=== PATIENT | female | born 1960 | race African-American/Black ===

== ENCOUNTER 2016-11-12 13:04 | Emergency (ER) | payer MEDICARE, OTHER ==
[~2016-11-12] VITALS: Ht 170.2 cm; Wt 88.5 kg
[~2016-11-12 13:04] MED LIST: ADVAIR 250-501 EACH; ASPIRIN81 MG ORAL; AUGMENTIN 875-1 EAC1 ORAL; CEPHALEXIN500 MG PO; DIFLUCAN100 MG ORAL; DIFLUCAN150 MG PO; FIORICET1 EA ORAL; HYDROCHLOROTH12.5 M2 PO; LOVASTATIN20 MG PO; NORCO 5-325 TA1 EACH ORAL; NORCO 5-325 TA1 EACH PO; OMEPRAZOLE20 M2 PO; PROAIR HFA8.5 GM; TAMIFLU75 MG ORAL; ZOFRAN ODT4 MG ORAL; ZOFRAN4 MG ORAL
[2016-11-12 13:24] VITALS: BP 136/84
[2016-11-12] MEDS ORDERED: Ketorolac 30mg Inj IM ONE (13:30)
--- NOTE | 2016-11-12 13:44 | Emergency Room Report ---
History of Present Illness General Chief Complaint: General Complaint Source: Patient, Medical Record Present Illness HPI The patient is a 56-year-old female presenting for hypertension and headache. The patient states that she regularly checks blood pressure at home which has been within normal range but she checked yesterday and it was elevated. She states blood pressure was in the 140s/90s. She states that she has had a very salty diet within the past 2 days and thinks this may causing the increase in blood pressure. She states that she has been taking her blood pressure medication as prescribed. Headache is described as a 5/10 diffuse dull ache. No known provoking relieving factors. She has taken [place] for pain which does help. She denies any other symptoms including N, V, F, chills, edema, CP, SOB, dizziness, blurred vision Allergies: Uncoded Allergies: ERYTHROMYCIN (Allergy, 06/02/12) MOTRIN (Allergy, 06/02/12) SULFA (Allergy, 06/02/12) Patient History Past Medical History: see triage record Pertinent Family History: none Last Menstrual Period: 2006 Now: No : 3 Para: 2 Reviewed Nursing Documentation: PMH: Agreed, PSxH: Agreed Nursing Documentation-PMH Past Medical History: No History, Except For Hx Cardiac Problems: Yes - high cholesterol Hx Hypertension: Yes Hx COPD: Yes Hx Gastrointestinal Problems: Yes - acid reflux Review of Systems All Other Systems: negative except mentioned in HPI Physical Exam Vital Signs Date Time Temp Pulse Resp B/P Pulse Ox O2 Delivery O2 Flow Rate FiO2 11/12/16 13:13 97.9 76 18 132/87 100 Room Air Sp02 EP Interpretation: reviewed, normal General Appearance: no apparent distress, alert, GCS 15, non-toxic Head: normocephalic, atraumatic Eyes: bilateral eye PERRL, bilateral eye normal inspection ENT: hearing grossly normal, normal pharynx, no angioedema, normal voice Neck: full range of motion, supple/symm/no masses Respiratory: chest non-tender, lungs clear, normal breath sounds, speaking full sentences Cardiovascular #1: regular rate, rhythm, no edema Cardiovascular #2: 2+ carotid (R), 2+ carotid (L), 2+ radial (R), 2+ radial (L) , 2+ dorsalis pedis (R), 2+ dorsalis pedis (L) Gastrointestinal: normal bowel sounds, non tender, soft, non-distended, no guarding, no rebound Musculoskeletal: back normal, gait/station normal, normal range of motion, non- tender Neurologic: alert, oriented x3, responsive, motor strength/tone normal, sensory intact, normal gait, speech normal Psychiatric: judgement/insight normal, memory normal, mood/affect normal, no suicidal/homicidal ideation Skin: normal color, no rash, warm/dry, well hydrated Lymphatic: no adenopathy Medical Decision Making PA Attestation Dr. Llanos is my supervising physician. Patient management was discussed with my supervising physician Diagnostic Impression: Primary Impression: Hypertension Qualified Codes: I10 - Essential (primary) hypertension Additional Impression: Headache Qualified Codes: R51 - Headache ER Course The patient is a 56-year-old female presenting for hypertension and headache. DDx considered but not limited to: essential HTN, HTN urgency/emergency, CHF, ACS, migraine, tension headache, among others PE: vitals WNL. Normotensive PERRL. EOMI. Normal mentation. RRR. No MRG Lungs CTA bilat Abdomen: Normal appearance. Non distended. No ecchymosis. No edema Pt is given Toradol and HCTZ and is feeling better. Multiple repeat BP are WNL. Pt will be DC'ed home. The patient is informed that she needs to keep a blood pressure diary and will followup with PMD to discuss increase of medications. Dietary instructions given. ER precautions given Last Vital Signs Date Time Temp Pulse Resp B/P Pulse Ox O2 Delivery O2 Flow Rate FiO2 11/12/16 13:24 98.1 72 17 136/84 100 Room Air Status: improved Disposition: HOME, SELF-CARE Condition: Improved Referrals: NON PHYSICIAN (PCP) EZEKIEL BURGER Nov 12, 2016 13:44
[2016-11-12 14:22] VITALS: BP 136/84
== END 2016-11-12 14:23 | disposition home or self-care (01) ==
LOC: EMR 13:38
DX: I10 Essential (primary) hypertension (principal); R51 Headache; J44.9 Chronic obstructive pulmonary disease, unspecified; Z88.2 Allergy status to sulfonamides; Z88.6 Allergy status to analgesic agent; Z88.1 Allergy status to other antibiotic agents
CPT/HCPCS: 96372; 99283; J1885

== ENCOUNTER → 2017-05-24 | Emergency (ER) | payer MEDICARE, OTHER ==
[~2017-05-24] VITALS: Ht 170.2 cm; Wt 85.7 kg
--- NOTE | 2017-05-24 14:56 | Emergency Room Report ---
History of Present Illness General Chief Complaint: Chest Pain Source: Patient Present Illness HPI 57-year-old female walks in with chest pain. Onset occurred 4 hours ago, while she was "running around around doing things." States pain was substernal, radiating to the left shoulder, was sharp in quality , 5/10. No associated shortness of breath, fever, cough, or chills States she had a heart attack back in 2013, did not have cath stents placed. States she was told this based on "blood tests". Takes daily aspirin, took this morning. Has high blood pressure and high cholesterol, took medications for both this morning Currently asymptomatic, episode lasted only 20 minutes. Allergies: Uncoded Allergies: ERYTHROMYCIN (Allergy, 06/02/12) MOTRIN (Allergy, 06/02/12) SULFA (Allergy, 06/02/12) Patient History Past Medical History: HTN, other - HLD Past Surgical History: none Pertinent Family History: none Social History: Reports: smoking, drug use Now: No Immunizations: UTD Reviewed Nursing Documentation: PMH: Agreed, PSxH: Agreed Nursing Documentation-PMH Past Medical History: No History, Except For Hx Cardiac Problems: Yes - high cholesterol Hx Hypertension: Yes Hx COPD: Yes Hx Gastrointestinal Problems: Yes - acid reflux Review of Systems All Other Systems: negative except mentioned in HPI Physical Exam Vital Signs Date Time Temp Pulse Resp B/P (MAP) Pulse Ox O2 Delivery O2 Flow Rate FiO2 05/24/17 14:46 98.2 80 17 122/87 99 Room Air Sp02 EP Interpretation: reviewed, normal General Appearance: normal inspection, well appearing, no apparent distress, alert, GCS 15, non-toxic Head: atraumatic ENT: normal ENT inspection, hearing grossly normal, normal voice Neck: normal inspection, full range of motion, supple, no bony tend Respiratory: normal inspection, lungs clear, normal breath sounds, no respiratory distress, no retraction, no wheezing, chest symmetrical, palpation of chest normal Cardiovascular #1: regular rate, rhythm, no edema Gastrointestinal: normal inspection, normal bowel sounds, non tender, soft, no guarding, no hernia Genitourinary: no CVA tenderness Musculoskeletal: normal inspection, back normal, normal range of motion, David' s Sign negative Neurologic: normal inspection, alert, oriented x3, responsive, 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 worker 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 nml as tested, speech normal Psychiatric: normal inspection, judgement/insight normal, mood/affect normal Skin: normal inspection, normal color, no rash Medical Decision Making Diagnostic Impression: Primary Impression: Chest pain Qualified Codes: R07.9 - Chest pain, unspecified ER Course 57-year-old female with chest pain, now asymptomatic Signs stable, afebrile ECG shows no signs of ischemia or arrhythmia She remains asymptomatic in the ER Troponin 0 Utox + for opiates, MJ Not required repeat ECG or other intervention Chest x-ray does not show cardiomegaly, or pneumothorax or pneumonia She reassured Likely angina Patient states that her doctor wants her to get stress test, which I advised the next step ER course: Patient has remained stable during ED stay. Patient is to be discharged to home. Patient is instructed to follow up with their primary care doctor within 5 days. 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 Strict return precautions discussed with patient such as fever, chills, worsening/severe pain, nausea, vomiting, which may indicate severe illness. Patient verbalizes understanding and agrees with plan. Please note that this Emergency Department Report was dictated using [employer]amed[employer] distribution technology software, occasionally this can lead to erroneous entry secondary to interpretation by the dictation equipment EKG Diagnostic Results Rate: normal Rhythm: NSR ST Segments: no acute changes ASA given to the pt in ED: No Rhythm Strip Diag. Results EP Interpretation: yes Rate: 79 Rhythm: NSR, no PVC's, no ectopy Chest X-Ray Diagnostic Results Chest X-Ray Diagnostic Results : Chest X-Ray Ordered: Yes # of Views/Limited/Complete: 1 View Indication: Chest Pain EP Interpretation: Yes Interpretation: no consolidation, no effusion, no pneumothorax Impression: No acute disease Electronically Signed by: Dr Su Daniels MD Last Vital Signs Date Time Temp Pulse Resp B/P (MAP) Pulse Ox O2 Delivery O2 Flow Rate FiO2 05/24/17 14:46 98.2 80 17 122/87 99 Room Air Status: improved Disposition: HOME, SELF-CARE SU DANIELS M.D. May 24, 2017 14:56
[2017-05-24 15:06] VITALS: BP 131/83
[2017-05-24 15:30] LABS: BASOPHILS % (AUTO) 1.7 % (0.0-2.0); EOSINOPHILS % (AUTO) 2.9 % (0.0-3.0); LYMPHOCYTES % (AUTO) 41.6 % (20.0-45.0); MEAN CORPUSCULAR HEMOGLOBIN 31.6 PG (27.0-31.0); MEAN CORPUSCULAR HGB CONC 32.9 G/DL (32.0-36.0); MEAN CORPUSCULAR VOLUME 96 FL (80-99); MEAN PLATELET VOLUME 8.7 FL (6.5-10.1); MONOCYTES % (AUTO) 9.7 % (1.0-10.0); NEUTROPHILS % (AUTO) 44.1 % (45.0-75.0); PLATELET COUNT 213 K/UL (150-450); RED BLOOD COUNT 4.58 M/UL (4.20-5.40); RED CELL DISTRIBUTION WIDTH 11.4 % (11.6-14.8); WHITE BLOOD COUNT 4.2 K/UL (4.8-10.8)
[2017-05-24 15:48] LABS: ANION GAP 8 mmol/L (5-15); CALCIUM 9.4 MG/DL (8.5-10.1); CARBON DIOXIDE 31 MMOL/L (21-32); CHLORIDE 103 MMOL/L (98-107); GLOMERULAR FILTRATION RATE > 60 mL/min (>60); POTASSIUM 3.8 MMOL/L (3.5-5.1); SODIUM 142 MMOL/L (136-145)
[2017-05-24 16:01] LABS: ALANINE AMINOTRANSFERASE 21 U/L (12-78); ALBUMIN/GLOBULIN RATIO 0.9 (1.0-2.7); ASPARTATE AMINO TRANSFERASE 19 U/L (15-37); CKMB 1.8 NG/ML (0.0-3.6); TOTAL PROTEIN 7.6 G/DL (6.4-8.2)
--- NOTE | 2017-05-24 17:16 | Diagnostic Imaging Report ---
Indication: Chest pain Technique: One view of the chest Comparison: 09/14/2011 Findings: Lungs and pleural spaces are clear. Heart size is normal. No significant or change Impression: No acute process
--- NOTE | 2017-05-27 11:00 | Cardiology Report ---
APPROVED REPORT EKG Measurement Heart [id number] Normal sinus rhythm Normal ECG
== END | disposition home or self-care (01) ==
LOC: EMR 15:05
DX: R07.89 Other chest pain (principal); I10 Essential (primary) hypertension; J44.9 Chronic obstructive pulmonary disease, unspecified; Z88.2 Allergy status to sulfonamides; Z88.6 Allergy status to analgesic agent; E78.5 Hyperlipidemia, unspecified; K21.9 Gastro-esophageal reflux disease without esophagitis
CPT/HCPCS: 36415; 71010; 80053; 80307; 82550; 82553; 84484; 85025; 93005; 99284

== ENCOUNTER 2017-07-28 17:12 | Emergency (ER) | payer MEDICARE, OTHER ==
[~2017-07-28] VITALS: Ht 170.2 cm; Wt 83.9 kg
[2017-07-28] MEDS ORDERED: Metoclopramide 10mg/10ml Liq ORAL ONE (18:00)
[2017-07-28] MEDS ORDERED: Excedrin Migraine tab ORAL ONE (18:15)
[2017-07-28 18:46] LABS: APPEARANCE,URINE CLEAR; BILIRUBIN, URINE NEGATIVE (NEGATIVE); COLOR,URINE PALE YELLOW; GLUCOSE, URINE (UA) NEGATIVE (NEGATIVE); KETONES,URINE NEGATIVE (NEGATIVE); LEUKOCYTE ESTERASE ,URINE NEGATIVE (NEGATIVE); NITRITE,URINE NEGATIVE (NEGATIVE); PH,URINE 7 (4.5-8.0); PROTEIN,URINE NEGATIVE (NEGATIVE); UROBILINOGEN,URINE NORMAL MG/DL (0.0-1.0)
--- NOTE | 2017-07-28 19:05 | Emergency Room Report ---
History of Present Illness General Chief Complaint: Headache Source: Patient, Medical Record Present Illness HPI 57-year-old female presents to the emergency department complaining of 10 out of 10 in severity progressive onset right sided throbbing headache since last night. Patient reports that she took Tylenol prior to bed however when she awoke she continued to have headache symptoms. Patient has history of headaches or which she was previously prescribed Fioricet for her one point however she is not currently takes a medication. Patient states she's never actually been evaluated by neurologist and diagnosed with migraines. Patient denies photophobia, or a, hyperacusis, nausea, vomiting, neck pain or stiffness. Patient denies weakness or paresthesias. Patient reports that she has history of high blood pressure for which she takes hydrochlorothiazide 12.5 mg once in the morning for. Patient states that her blood pressure has been elevated for the past 2 days she reports that previously she was prescribed 25 mg once daily however it has to be dizzy frequently and she was returned back to original 12.5 mg doses. Denies head trauma or fall. She reports some urinary frequency denies dysuria or hematuria. Denies CP, Palpitations, LOC, AMS, dizziness, Changes in Vision, Sensation, paresthesias, or a sudden severe headache. Allergies: Uncoded Allergies: ERYTHROMYCIN (Allergy, 06/02/12) MOTRIN (Allergy, 06/02/12) SULFA (Allergy, 06/02/12) Patient History Past Medical History: see triage record, migraines Past Surgical History: none Pertinent Family History: none Now: No Immunizations: UTD Reviewed Nursing Documentation: PMH: Agreed, PSxH: Agreed Nursing Documentation-PMH Past Medical History: No History, Except For Hx Cardiac Problems: Yes - high cholesterol Hx Hypertension: Yes Hx COPD: Yes Hx Gastrointestinal Problems: Yes - acid reflux Review of Systems All Other Systems: negative except mentioned in HPI Physical Exam Vital Signs Date Time Temp Pulse Resp B/P (MAP) Pulse Ox O2 Delivery O2 Flow Rate FiO2 07/28/17 17:21 97.8 87 18 166/102 98 Room Air 97.9 Sp02 EP Interpretation: reviewed, normal General Appearance: no apparent distress, alert, GCS 15, non-toxic Head: normocephalic, atraumatic Eyes: bilateral eye normal inspection, bilateral eye PERRL ENT: hearing grossly normal, normal voice Neck: full range of motion, no meningismus, no bony tend Respiratory: lungs clear, normal breath sounds, speaking full sentences Cardiovascular #1: regular rate, rhythm Gastrointestinal: normal bowel sounds, non tender, soft Genitourinary: no CVA tenderness Musculoskeletal: back normal, gait/station normal, normal range of motion, non- tender Neurologic: alert, oriented x3, responsive, motor strength/tone normal, sensory intact, normal gait, speech normal, no pronator, grossly normal Psychiatric: judgement/insight normal Skin: normal color, no rash, warm/dry, well hydrated Medical Decision Making PA Attestation Dr. Ferrer is my supervising Physician whom patient management has been discussed with. Diagnostic Impression: Primary Impression: Headache Qualified Codes: R51 - Headache Additional Impression: Elevated blood pressure reading ER Course 57-year-old female presents to the emergency department complaining of 10 out of 10 in severity progressive onset right sided throbbing headache since last night. Patient reports that she took Tylenol prior to bed however when she awoke she continued to have headache symptoms. Patient has history of headaches or which she was previously prescribed Fioricet for her one point however she is not currently takes a medication. Patient states she's never actually been evaluated by neurologist and diagnosed with migraines. Patient denies photophobia, or a, hyperacusis, nausea, vomiting, neck pain or stiffness. Patient denies weakness or paresthesias. Patient reports that she has history of high blood pressure for which she takes hydrochlorothiazide 12.5 mg once in the morning for. Patient states that her blood pressure has been elevated for the past 2 days she reports that previously she was prescribed 25 mg once daily however it has to be dizzy frequently and she was returned back to original 12.5 mg doses. Denies head trauma or fall. She reports some urinary frequency denies dysuria or hematuria. Denies CP, Palpitations, LOC, AMS, dizziness, Changes in Vision, Sensation, paresthesias, or a sudden severe headache. Ddx considered but are not limited to migraine, SAH, Psedudo motor Cerebri, Mass lesion, Cluster CALDERA, Tension CALDERA, Post lumbar puncture CALDERA. Vital signs: are WNL, pt. is afebrile H&PE are most consistent with headache and hx of HTN. no focal neuro deficits. ORDERS: ED INTERVENTIONS: --Reglan 10mg PO -Excedrin Migraine PO -12.5mg HCTZ PO On reevaluation patient states that her symptoms have completely resolved and she feels much better. Discussed with the patient the results of her urine testing. Urge patient to follow up with primary care doctor for neurologist referral. DISCHARGE: At this time pt. is stable for d/c to home. Will provide printed patient care instructions, and any necessary prescriptions. Care plan and follow up instructions have been discussed with the patient prior to discharge. Labs Test 07/28/17 18:10 Urine Color Pale yellow Urine Appearance Clear Urine pH 7 (4.5-8.0) Urine Specific [place] 1.005 (1.005-1.035) Urine Protein Negative (NEGATIVE) Urine Glucose (UA) Negative (NEGATIVE) Urine Ketones Negative (NEGATIVE) Urine Occult Blood 1+ (NEGATIVE) Urine Nitrite Negative (NEGATIVE) Urine Bilirubin Negative (NEGATIVE) Urine Urobilinogen Normal MG/DL (0.0-1.0) Urine Leukocyte Esterase Negative (NEGATIVE) Urine RBC 2-4 /HPF (0 - 2) Urine WBC 0-2 /HPF (0 - 2) Urine Squamous Epithelial Cells Few /LPF (NONE/OCC) Urine Bacteria None /HPF (NONE) Last Vital Signs Date Time Temp Pulse Resp B/P (MAP) Pulse Ox O2 Delivery O2 Flow Rate FiO2 07/28/17 18:15 97.8 07/28/17 17:21 87 18 166/102 98 Room Air Disposition: HOME, SELF-CARE Condition: Stable Scripts Hydrochlorothiazide* (HYDROCHLOROTHIAZIDE*) 12.5 Mg Capsule 12.5 MG ORAL QPM for For High Blood Pressure, #15 CAP Prov: Audrey Wong.AShayy 07/28/17 Aspirin/Acetaminophen/Caffeine (EXCEDRIN MIGRAINE GELTAB) 1 Each Tablet 1 EACH PO Q6HR, #30 TAB Prov: Audrey Wong.A. 07/28/17 Metoclopramide Hcl* (REGLAN*) 10 Mg Tablet 10 MG ORAL THREE TIMES A DAY, #15 TAB Prov: Audrey Wong P.A. 07/28/17 Referrals: NON PHYSICIAN (PCP) Patient Instructions: Migraine Headache Additional Instructions: Take medications as directed. Check BP before taking evening dosage of BP Medication, only take if BP is elevated in the evening above 145/95 -- Follow up with a Primary Care Provider in 3-5 days, even if your symptoms have resolved. to re-assess need for Medication Management. --Please review list of primary care clinics, if you do not already have a primary care provider Return sooner to ED if new symptoms occur, or current symptoms become worse. - Please note that this Emergency Department Report was dictated using [employer] software tester technology software, occasionally this can lead to erroneous entry secondary to interpretation by the dictation equipment. Audrey Wong Jul 28, 2017 19:05
[2017-07-28] MEDS ORDERED: EXCEDRIN MIGRA1 EACH PO (19:06)
[2017-07-28] MEDS ORDERED: REGLAN10 MG ORAL (19:06)
[2017-07-28] MEDS ORDERED: HYDROCHLOROTH12.5 M2 ORAL (19:06)
[2017-07-28 19:13] VITALS: BP 154/92
[2017-07-28 19:14] VITALS: BP 154/92
== END 2017-07-28 19:15 | disposition home or self-care (01) ==
LOC: EMR 17:53
DX: R51 Headache (principal); I10 Essential (primary) hypertension; J44.9 Chronic obstructive pulmonary disease, unspecified; E78.00 Pure hypercholesterolemia, unspecified; K21.9 Gastro-esophageal reflux disease without esophagitis; Z88.2 Allergy status to sulfonamides; Z88.6 Allergy status to analgesic agent
CPT/HCPCS: 81003; 99284

== ENCOUNTER 2017-08-15 03:11 | Emergency (ER) | payer MEDICARE, OTHER ==
[~2017-08-15] VITALS: Ht 170.2 cm; Wt 83.0 kg
[~2017-08-15 03:11] MED LIST changes: +EXCEDRIN MIGRA1 EACH PO; +HYDROCHLOROTH12.5 M2 ORAL; +REGLAN10 MG ORAL
[2017-08-15 03:25] VITALS: BP 155/92
[2017-08-15 03:30] VITALS: BP 155/92
--- NOTE | 2017-08-15 04:19 | Emergency Room Report ---
History of Present Illness General Chief Complaint: General Complaint Source: Patient Present Illness Allergies: Uncoded Allergies: ERYTHROMYCIN (Allergy, 06/02/12) MOTRIN (Allergy, 06/02/12) SULFA (Allergy, 06/02/12) Nursing Documentation-[facility] Past Medical History: No History, Except For Hx Cardiac Problems: Yes - high cholesterol Hx Hypertension: Yes - high cholesterol Hx COPD: Yes Hx Gastrointestinal Problems: Yes - acid reflux Physical Exam Vital Signs Date Time Temp Pulse Resp B/P (MAP) Pulse Ox O2 Delivery O2 Flow Rate FiO2 08/15/17 03:17 98.9 103 20 155/92 100 Room Air 99.0 Medical Decision Making Last Vital Signs Date Time Temp Pulse Resp B/P (MAP) Pulse Ox O2 Delivery O2 Flow Rate FiO2 08/15/17 03:17 98.9 103 20 155/92 100 Room Air 99.0 Disposition: ELOPED Referrals: NON PHYSICIAN (PCP) SU DANIELS M.D. Aug 15, 2017 04:19
[2017-08-15] MEDS ORDERED: CEPHALEXIN500 MG ORAL (12:39)
[2017-08-15] MEDS ORDERED: DIFLUCAN150 MG PO (12:49)
== END 2017-08-15 03:50 | disposition left against medical advice (07) ==
LOC: EMR 03:42
DX: M79.671 Pain in right foot (principal); Z53.21 Procedure and treatment not carried out due to patient leaving prior to being seen by health care provider
CPT/HCPCS: 99284

== ENCOUNTER 2017-08-15 12:04 | Emergency (ER) | payer MEDICARE, OTHER ==
[~2017-08-15] VITALS: Ht 170.2 cm; Wt 83.0 kg
[2017-08-15] MEDS ORDERED: CEPHALEXIN500 MG ORAL (12:39)
[2017-08-15 12:45] VITALS: BP 129/84
[2017-08-15] MEDS ORDERED: DIFLUCAN150 MG PO (12:49)
--- NOTE | 2017-08-15 19:44 | Emergency Room Report ---
History of Present Illness General Chief Complaint: Pain Source: Patient Present Illness HPI The patient is a 57-year-old female presenting for right foot pain. She states that this began 2 weeks prior for no known reason. She denies any injury. She noticed a bump on the bottom of her foot. She states that this has been increasing in size and pain. Pain is now a 9/10 dull ache and worse with walking and touch. Pain does not radiate. She denies any other symptoms including numbness, tingling, calf pain or swelling, fever, chills, discharge Allergies: Coded Allergies: IBUPROFEN (Verified Allergy, Unknown, ACID REFLUX, 08/15/17) SULFA (SULFONAMIDE ANTIBIOTICS) (Verified Allergy, Unknown, HEADACHE, NAUSEA, SCRATCHY THROAT, 08/15/17) Uncoded Allergies: MOTRIN (Allergy, Unknown, 08/15/17) SULFA (Allergy, Unknown, 08/15/17) Patient History Past Medical History: see triage record Pertinent Family History: none Last Menstrual Period: Post Reviewed Nursing Documentation: PMH: Agreed, PSxH: Agreed Nursing Documentation-PMH Hx Cardiac Problems: Yes - [place] 2007 Hx Hypertension: Yes - High cholesterol Hx COPD: Yes Hx Gastrointestinal Problems: Yes - Acid Reflux Hx Cerebrovascular Accident: Yes - 2007 Review of Systems All Other Systems: negative except mentioned in HPI Physical Exam Vital Signs Date Time Temp Pulse Resp B/P (MAP) Pulse Ox O2 Delivery O2 Flow Rate FiO2 08/15/17 12:15 98.5 76 18 129/84 96 Room Air 98.4 Sp02 EP Interpretation: reviewed, normal General Appearance: no apparent distress, alert, GCS 15, non-toxic Head: normocephalic, atraumatic Eyes: bilateral eye normal inspection, bilateral eye PERRL Musculoskeletal: back normal, gait/station normal, normal range of motion, tender - TTP plantar surface of R foot pad Neurologic: alert, oriented x3, responsive, motor strength/tone normal, sensory intact, speech normal Psychiatric: judgement/insight normal, memory normal, mood/affect normal, no suicidal/homicidal ideation Skin: other - 1cm fluctuant lesion of the R foot pad. Erythema. TTP Lymphatic: no adenopathy Medical Decision Making PA Attestation Dr. Ferrer is my supervising physician. Patient management was discussed with my supervising physician Diagnostic Impression: Primary Impression: Abscess ER Course The patient is a 57-year-old female presenting for right foot pain. Differential diagnoses considered but not limited to: abscess, cellulitis, insect bite, foreign body, among others PE: NAD R foot plantar surface: Skin intact. 1cm fluctuant lesion of the R foot pad. Erythema. TTP The patient is discharged home with prescription for Keflex for suspected infection. She is requesting treatment for vaginal yeast infection after the antibiotic course. She'll be discharged home and is given precautions to return for incision and drainage. ER precautions given Last Vital Signs Date Time Temp Pulse Resp B/P (MAP) Pulse Ox O2 Delivery O2 Flow Rate FiO2 08/15/17 12:45 209.1 76 18 129/84 96 Room Air Status: improved Disposition: HOME, SELF-CARE Condition: Improved Scripts Fluconazole (DIFLUCAN) 150 Mg Tablet 150 MG PO DAILY, #1 TAB Prov: EZEKIEL BURGER P.A. 08/15/17 Cephalexin* (KEFLEX*) 500 Mg Capsule 500 MG ORAL EVERY 12 HOURS, #14 CAP 0 Refills Prov: EZEKIEL BURGER P.A. 08/15/17 Patient Instructions: Abscess, [id number] Additional Instructions: I discussed my findings with the patient. All questions and concerns have been answered. Treatment and medication compliance have been addressed. I advised the patient that they need to follow up with PMD in 3-5 days. Return to ED if symptoms worsen, new symptoms arise, or if needed for any reason. Patient verbalized understanding of discharge instructions. Please return for incission and drainage if the area gets softer, larger, and/ or more painful. EZEKIEL BURGER Aug 15, 2017 19:44
== END 2017-08-15 12:49 | disposition home or self-care (01) ==
LOC: EMR 12:32
DX: L02.611 Cutaneous abscess of right foot (principal); I10 Essential (primary) hypertension; I25.2 Old myocardial infarction; J44.9 Chronic obstructive pulmonary disease, unspecified; K21.9 Gastro-esophageal reflux disease without esophagitis; Z88.6 Allergy status to analgesic agent; Z88.2 Allergy status to sulfonamides
CPT/HCPCS: 99284

== ENCOUNTER 2017-09-21 03:45 | Emergency (ER) | payer MEDICARE, OTHER ==
[~2017-09-21] VITALS: Ht 170.2 cm; Wt 82.6 kg
[~2017-09-21 03:45] MED LIST changes: +CEPHALEXIN500 MG ORAL
[2017-09-21 04:00] VITALS: BP 137/91
--- NOTE | 2017-09-21 04:09 | Emergency Room Report ---
History of Present Illness General Chief Complaint: Dyspnea/Respdistress Source: Patient, Medical Record Present Illness HPI This is a 57-year-old female with multiple medical problem including COPD. She presents with chief complaint of cough and shortness breath for the last 3 days. Worse tonight. She took her breathing treatment and help. No nausea no vomiting no fever chills. Cough is nonproductive in nature. Worse with exertion. Better with breathing treatment. Second complaint is headache. Has been ongoing for the last couple weeks. Throbbing in nature. She said she can get rid of it. No focal deficit. Hasn't had any CT scan for this headache workup. Allergies: Coded Allergies: IBUPROFEN (Verified Allergy, Unknown, ACID REFLUX, 08/15/17) SULFA (SULFONAMIDE ANTIBIOTICS) (Verified Allergy, Unknown, HEADACHE, NAUSEA, SCRATCHY THROAT, 08/15/17) Uncoded Allergies: MOTRIN (Allergy, Unknown, 08/15/17) SULFA (Allergy, Unknown, 08/15/17) Patient History Past Medical History: see triage record, old chart reviewed, HTN, CAD, COPD, CVA/TIA Past Surgical History: other Pertinent Family History: none Social History: Denies: smoking Last Menstrual Period: 2006 Now: No Immunizations: other Reviewed Nursing Documentation: PMH: Agreed; PSxH: Agreed Nursing Documentation-PMH Hx Cardiac Problems: Yes - [place] 2008 Hx Hypertension: Yes - High cholesterol Hx COPD: Yes Hx Gastrointestinal Problems: Yes - Acid Reflux Hx Cerebrovascular Accident: Yes - 2008 Review of Systems Eye: Denies: eye pain, blurred vision ENT: Denies: ear pain, nose congestion, throat swelling Respiratory: Reports: cough, shortness of breath Cardiovascular: Denies: chest pain, palpitations Gastrointestinal: Denies: abdominal pain, diarrhea, nausea, vomiting Musculoskeletal: Denies: back pain, joint pain Skin: Denies: rash Neurological: Denies: headache, numbness Endocrine: Denies: increased thirst, increased urine Hematologic/Lymphatic: Denies: easy bruising All Other Systems: negative except mentioned in HPI Physical Exam Vital Signs Date Time Temp Pulse Resp B/P (MAP) Pulse Ox O2 Delivery O2 Flow Rate FiO2 09/21/17 03:49 98.1 78 15 137/91 97 Room Air 98.1 vitals normal Sp02 EP Interpretation: reviewed, normal General Appearance: well appearing, no apparent distress, alert Head: normocephalic, atraumatic Eyes: bilateral eye PERRL, bilateral eye EOMI ENT: hearing grossly normal, normal pharynx Neck: full range of motion, supple, no meningismus Respiratory: chest non-tender, wheezing - slight external wheezing Cardiovascular #1: regular rate, rhythm, no murmur Gastrointestinal: normal bowel sounds, non tender, no mass, no organomegaly, no bruit, non-distended Musculoskeletal: back normal, gait/station normal, normal range of motion Psychiatric: mood/affect normal Skin: warm/dry Medical Decision Making Diagnostic Impression: Primary Impression: COPD exacerbation Additional Impression: Headache Qualified Codes: G44.209 - Tension-type headache, unspecified, not intractable ER Course She presents with COPD exacerbation. She refuses steroid here saying that she had them at home already. She picked up her prescription this afternoon but has not taking them yet. Wheezing resolved. No evidence of pneumonia, ACS, PE , dissection to name a few. Her headache is probably tension in nature. No evidence of bleed or TIA or CVA. No evidence of neoplastic process. CT/MRI/US Diagnostic Results CT/MRI/US Diagnostic Results : Imaging Test Ordered: CT head Impression negative per radiologist Last Vital Signs Date Time Temp Pulse Resp B/P (MAP) Pulse Ox O2 Delivery O2 Flow Rate FiO2 09/21/17 03:49 98.1 78 15 137/91 97 Room Air 98.1 Status: improved Disposition: HOME, SELF-CARE Condition: Stable Scripts Azithromycin* (ZITHROMAX*) 250 Mg Tablet 250 MG ORAL DAILY, #6 TAB 0 Refills Take two tablets by mouth today, then take one tablet by mouth daily for four days Prov: SINDY JONES M.D. 09/21/17 Referrals: NON PHYSICIAN (PCP) Patient Instructions: Chronic Obstructive Pulmonary Disease Exacerbation Additional Instructions: follow-up your doctor in 7 days. Return if symptom worsen. SINDY JONES M.D. Sep 21, 2017 04:09
[2017-09-21] MEDS ORDERED: Acetaminophen 500mg (ES) tab ORAL ONE (04:15)
[2017-09-21] MEDS ORDERED: Albuterol/Ipratropium 3ml neb HHN ONE (04:15)
[2017-09-21] MEDS ORDERED: AZITHROMYCIN250 MG ORAL (05:02)
[2017-09-21 05:12] VITALS: BP 142/85
--- NOTE | 2017-09-21 08:47 | Diagnostic Imaging Report ---
Indication: Headache for one Technique: Continuous helical CT scanning of the head was performed without intravenous contrast material. Axial and coronal 5 mm sections were generated. Radiation dose was minimized using automated exposure control Dose: Total Dose Length Product - DLP 1288.[address] Dose Index - CTDIvol(s) 70.38 mGy. Comparison: 03/20/2014 Findings: The ventricular system is normal in size and configuration. There is no shift of midline structures. No abnormal extra-axial fluid collections are noted. There is no evidence of intracerebral bleeding. No other abnormal high or low density areas are noted within the brain. Intact calvarium. Visualized orbits and sinuses are unremarkable. No significant interim change Impression: Normal CT scan of the head without contrast material. This agrees with the preliminary interpretation provided overnight by [facility] service. The CT scanner at [facility] is accredited by the [employer] and the scans are performed using protocols designed to limit radiation exposure to as low as reasonably achievable to attain images of sufficient resolution adequate for diagnostic evaluation.
== END 2017-09-21 05:12 | disposition home or self-care (01) ==
LOC: EMR 03:55
DX: J44.1 Chronic obstructive pulmonary disease with (acute) exacerbation (principal); G44.209 Tension-type headache, unspecified, not intractable; Z88.6 Allergy status to analgesic agent; Z88.2 Allergy status to sulfonamides; I11.9 Hypertensive heart disease without heart failure; Z86.73 Personal history of transient ischemic attack (TIA), and cerebral infarction without residual deficits; I25.2 Old myocardial infarction; E78.00 Pure hypercholesterolemia, unspecified; K21.9 Gastro-esophageal reflux disease without esophagitis
CPT/HCPCS: 70450; 94640; 94664; 99284; J7620

== ENCOUNTER → 2017-10-04 | Emergency (ER) | payer MEDICARE, OTHER ==
[~2017-10-04] VITALS: Ht 170.2 cm; Wt 81.6 kg
[~2017-10-04] MED LIST changes: +AZITHROMYCIN250 MG ORAL; +NORCO 10-325 T1 EACH ORAL; +PROMETH-CODEIN 65 ML PO; +VENTOLIN HFA18 GM INH
[2017-10-04 22:04] VITALS: BP 126/79
[2017-10-04 23:04] VITALS: BP 132/74
--- NOTE | 2017-10-04 23:14 | Emergency Room Report ---
History of Present Illness General Chief Complaint: Chest Pain Source: Patient Present Illness HPI This is a 57-year-old female with a history of COPD and high blood pressure. She says she's been coughing and congested for about 3 weeks now. Initially in her nose but now down to her chest. Worse with inspiration. Worse with laying flat. There are with breathing treatment and steroid. She had several courses of antibiotics already. She is currently finishing up a course of azithromycin. She also is on prednisone 20 mg. No chest pain. No diaphoresis. No exertional component. Allergies: Coded Allergies: IBUPROFEN (Verified Allergy, Unknown, ACID REFLUX, 08/15/17) SULFA (SULFONAMIDE ANTIBIOTICS) (Verified Allergy, Unknown, HEADACHE, NAUSEA, SCRATCHY THROAT, 08/15/17) Patient History Past Medical History: see triage record, old chart reviewed, HTN, COPD Past Surgical History: other Pertinent Family History: none Social History: Denies: smoking Now: No Immunizations: other Reviewed Nursing Documentation: PMH: Agreed; PSxH: Agreed Nursing Documentation-PMH Past Medical History: No History, Except For Hx Cardiac Problems: Yes - [place] 2008 Hx Hypertension: Yes - High cholesterol Hx COPD: Yes Hx Gastrointestinal Problems: Yes - GERD Hx Cerebrovascular Accident: Yes - 2008 Review of Systems Eye: Denies: eye pain, blurred vision ENT: Denies: ear pain, nose congestion, throat swelling Respiratory: Reports: cough, shortness of breath Cardiovascular: Denies: chest pain, palpitations Gastrointestinal: Denies: abdominal pain, diarrhea, nausea, vomiting Musculoskeletal: Denies: back pain, joint pain Skin: Denies: rash Neurological: Denies: headache, numbness Endocrine: Denies: increased thirst, increased urine Hematologic/Lymphatic: Denies: easy bruising All Other Systems: negative except mentioned in HPI Physical Exam Vital Signs Date Time Temp Pulse Resp B/P (MAP) Pulse Ox O2 Delivery O2 Flow Rate FiO2 10/04/17 22:04 98.6 91 16 126/79 97 Room Air 98.6 vitals normal Sp02 EP Interpretation: reviewed, normal General Appearance: well appearing, no apparent distress, alert Head: normocephalic, atraumatic Eyes: bilateral eye PERRL, bilateral eye EOMI ENT: hearing grossly normal, normal pharynx Neck: full range of motion, supple, no meningismus Respiratory: chest non-tender, lungs clear, normal breath sounds, other - coughing with inspiration Cardiovascular #1: regular rate, rhythm, no murmur Gastrointestinal: normal bowel sounds, non tender, no mass, no organomegaly, no bruit, non-distended Musculoskeletal: back normal, gait/station normal, normal range of motion Psychiatric: mood/affect normal Skin: warm/dry Medical Decision Making Diagnostic Impression: Primary Impression: Acute bronchitis with bronchospasm ER Course Patient presents with acute bronchitis with bronchospasm. Most likely viral in nature since she's been on a few courses of antibiotics already. No evidence of ACS, PE, dissection to name a few. She also has been having abdominal pain and had a recent CT. She does not know results. She does not know evidence included a chest also. I will defer the CT of her chest until she see her doctor. If she hasn't had her CT of the chest and still have coughing I will recommend getting 1. Chest X-Ray Diagnostic Results Chest X-Ray Diagnostic Results : Chest X-Ray Ordered: Yes # of Views/Limited/Complete: 1 View Indication: Shortness of Breath EP Interpretation: Yes Interpretation: no consolidation, no effusion, no pneumothorax, no acute cardiopulmonary disease Impression: No acute disease Electronically Signed by: Rah Issa MD Last Vital Signs Date Time Temp Pulse Resp B/P (MAP) Pulse Ox O2 Delivery O2 Flow Rate FiO2 10/04/17 22:04 98.6 91 16 126/79 97 Room Air 98.6 Status: improved Condition: Stable Scripts Promethazine HCl/Codeine (Prometh-Codein 6.25-10 mg/5 ml) 5 Ml Syrup 5 ML PO Q6HR, #118 ML Prov: RAH ISSA M.D. 10/04/17 Additional Instructions: Follow-up your doctor as scheduled. If you have not had a CT of your chest, you may need one. See your doctor for this. Return if symptom worsen. Finish up your antibiotics. Continue with her prednisone. RAH ISSA M.D. Oct 04, 2017 23:14
--- NOTE | 2017-10-05 10:32 | Diagnostic Imaging Report ---
Indication: Shortness of breath Technique: One view of the chest Comparison: 05/24/2017 Findings: Lungs and pleural spaces are clear. Heart size is normal. There is no significant interim change Impression: No acute process
== END | disposition home or self-care (01) ==
LOC: EMR 23:37
DX: J20.9 Acute bronchitis, unspecified (principal); J44.0 Chronic obstructive pulmonary disease with (acute) lower respiratory infection; I10 Essential (primary) hypertension; K21.9 Gastro-esophageal reflux disease without esophagitis; Z88.6 Allergy status to analgesic agent; Z88.2 Allergy status to sulfonamides; I25.2 Old myocardial infarction
CPT/HCPCS: 71045; 99283

== ENCOUNTER 2018-07-22 12:32 | Emergency (ER) | payer MEDICARE, OTHER ==
[~2018-07-22] VITALS: Ht 167.6 cm; Wt 83.9 kg
[2018-07-22] MEDS ORDERED: Methocarbamol 500mg tab ORAL ONE (13:00)
[2018-07-22 13:01] VITALS: BP 160/91
--- NOTE | 2018-07-22 13:02 | Emergency Room Report ---
History of Present Illness General Chief Complaint: Multiple Trauma/Fall Source: Patient Present Illness HPI 58-year-old female patient presents the ER with multiple complaints status post mechanical trip and fall. Patient reports that she was walking down the stairs when she tripped and fell, states that she went to grab the railing when the railing broke. Reports that she fell down approximately 4 or 5 stairs. Denies hitting her head or loss of consciousness. Complaining of left-sided neck pain that radiates down to her left arm. Complaining of left thumb pain and right wrist pain from where she landed on her hands bilaterally. She is right-hand dominant. Also reports that she fell onto her bilateral knees at that time. Reports pain is worse in her left knee. States that she has a history of chronic back pain for which she walks with a cane. Ports that she takes Geneva for pain, declined pain medication at this time. Denies vomiting or vision changes. Denies photophobia or phonophobia. Allergies: Coded Allergies: IBUPROFEN (Verified Allergy, Unknown, ACID REFLUX, 08/15/17) SULFA (SULFONAMIDE ANTIBIOTICS) (Verified Allergy, Unknown, HEADACHE, NAUSEA, SCRATCHY THROAT, 08/15/17) Patient History Past Medical History: see triage record Reviewed Nursing Documentation: PMH: Agreed; PSxH: Agreed Nursing Documentation-PMH Past Medical History: No History, Except For Hx Cardiac Problems: Yes - [place] 2007 Hx Hypertension: Yes - High cholesterol Hx COPD: Yes Hx Gastrointestinal Problems: Yes - GERD Hx Cerebrovascular Accident: Yes - 2007 Review of Systems All Other Systems: negative except mentioned in HPI Physical Exam Vital Signs Date Time Temp Pulse Resp B/P (MAP) Pulse Ox O2 Delivery O2 Flow Rate FiO2 07/22/18 12:35 97.7 81 18 160/91 98 Room Air Sp02 EP Interpretation: reviewed, normal General Appearance: well appearing, no apparent distress, alert, GCS 15, non- toxic Head: normocephalic, atraumatic Eyes: bilateral eye normal inspection, bilateral eye PERRL ENT: hearing grossly normal, normal pharynx, no angioedema, normal voice, uvula midline, moist mucus membranes Neck: full range of motion, tender lateral - Left, other - No bony depression Respiratory: lungs clear, normal breath sounds, no rhonchi, no respiratory distress, no accessory muscle use, no wheezing, speaking full sentences Cardiovascular #1: regular rate, rhythm, no edema Cardiovascular #2: 2+ radial (R), 2+ radial (L) Musculoskeletal: back normal, digits/nails normal, gait/station normal, normal range of motion, swelling - Mild swelling noted over left knee, no erythema, no contusion, other - No laxity with varus or valgus stress, no snuffbox tenderness , cap refill less than 2 seconds, neurovascularly intact, no bony deformity, tender - Anterior left knee, right dorsum of wrist, radial side of the left thumb Neurologic: alert, oriented x3, responsive, motor strength/tone normal, sensory intact Psychiatric: mood/affect normal Skin: no rash Medical Decision Making PA Attestation Dr. Woodall is my supervising Physician whom patient management has been discussed with. Diagnostic Impression: Primary Impression: Fall Additional Impressions: Knee contusion Cervical radiculopathy Wrist sprain ER Course Pt. presents to the ED with multiple complaints status post fall. Ddx considered but are not limited to fracture, sprain, strain, contusion, dislocation. No erythema, no warmth to touch, no fever, nontoxic appearing, low suspicion for septic joint. Soft compartments, no pulselessness, no pallor, no paresthesias, low suspicion for compartment syndrome at this time. Vital signs: are WNL, pt. is afebrile Ordered X-ray and pain medication. ER COURSE Provided with muscle relaxant. An X-ray of the cervical neck shows no x-ray per the preliminary reading. Advised on MRI for radiculopathy. An X-ray of the left hand shows no acute fracture per the preliminary reading. An X-ray of the left wrist shows no acute fracture per the preliminary reading. An X-ray of the right hand shows no acute fracture per the preliminary reading. An X-ray of the left knee shows no acute fracture per the preliminary reading. Likely contusion causing pain symptoms. Patient may continue take Geneva as needed for pain, we will not provide refill of Geneva medication. Will provide patient with muscle relaxant. Patient reports pain symptoms improve on the ER after taking Robaxin. Reports pain is worse in right wrist, will apply splint to that hand. Splint was applied to the right wrist was checked afterwards by me showing good alignment and support with distal neurovascular functioning intact. LAURIE wrap applied to the left knee and was checked afterwards by me showing good alignment and support with distal neurovascular functioning intact. Crutches provided. Patient instructed on RICE method: rest, ice, compression, elevation. Patient instructed on rest, ice and heat. Patient instructed to be WBAT Contact information for orthopedic urgent care provided, follow-up with urgent care if unable to followup with primary care provider and get referral to psychological operations specialist. Followup with primary care provider. Discuss referral to ortho/pain management/ PT as needed. Discuss further imaging with MRI/CT as needed. DISCHARGE: -Rx provided for Methocarbamol. SE drowsiness, do not drink, drive, or operate heavy machinery while using. At this time pt. is stable for d/c to home. Patient is resting comfortably, in no acute distress, nontoxic appearing, talking without difficulty. Will provide printed patient care instructions, and any necessary prescriptions. Patient instructed to follow with primary care provider in 3 - 5 days and to request further follow-up as needed. Care plan and follow up instructions have been discussed with the patient prior to discharge. Take medications as directed. Patient questions asked and answered. Patient reports understanding and agreement to treatment plan. ER precautions given, patient instructed to return to ER immediately for any new or worsening of symptoms. - Please note that this Emergency Department Report was dictated using [employer] therapist technology software, occasionally this can lead to erroneous entry secondary to interpretation by the dictation equipment. Other X-Ray Diagnostic Results Other X-Ray Diagnostic Results #1: X-Ray ordered: Left knee # of Views/Limited Vs Complete: 3 View Indication: Pain EP Interpretation: Yes PA Xray: Interpretation reviewed, by supervising MD, and agrees with findings. Interpretation: no dislocation, no soft tissue swelling, no fractures Impression: No acute disease PA Scribe Text Liam Faust PA-C Other X-Ray Diagnostic Results #2: X-Ray ordered: Cervical spine # of Views/Limited Vs Complete: 3 View Indication: Pain EP Interpretation: Yes PA Xray: Interpretation reviewed, by supervising MD, and agrees with findings. Interpretation: no dislocation, no soft tissue swelling, no fractures Impression: No acute disease PA Scribe Text Liam Faust PA-C Other X-Ray Diagnostic Results #3: X-Ray ordered: Right wrist # of Views/Limited Vs Complete: 3 View Indication: Pain EP Interpretation: Yes PA Xray: Interpretation reviewed, by supervising MD, and agrees with findings. Interpretation: no dislocation, no soft tissue swelling, no fractures Impression: No acute disease PA Scribe Tanya Faust PA-C Other X-Ray Diagnostic Results #4: X-Ray ordered: Left hand # of Views/Limited Vs Complete: 3 View Indication: Pain EP Interpretation: Yes PA Xray: Interpretation reviewed, by supervising MD, and agrees with findings. Interpretation: no dislocation, no soft tissue swelling, no fractures Impression: No acute disease PA Scribe Text Liam Faust PA-C Other X-Ray Diagnostic Results #5: X-Ray ordered: left hand # of Views/Limited Vs Complete: 3 View Indication: Pain EP Interpretation: Yes PA Xray: Interpretation reviewed, by supervising MD, and agrees with findings. Interpretation: no dislocation, no soft tissue swelling, no fractures Impression: No acute disease PA Scribe Tanya Faust PA-C Last Vital Signs Date Time Temp Pulse Resp B/P (MAP) Pulse Ox O2 Delivery O2 Flow Rate FiO2 07/22/18 12:35 97.7 81 18 160/91 98 Room Air Status: improved Disposition: HOME, SELF-CARE Condition: Stable Scripts Methocarbamol* (ROBAXIN*) 500 Mg Tablet 500 MG PO TID, #21 TAB 0 Refills Prov: Doyle Faust 07/22/18 Patient Instructions: Cervical Radiculopathy, [id number], Fall Prevention in the Home, [id number], Knee Pain, [id number], Wrist Pain, [id number] Additional Instructions: Patient instructed to follow up with primary care provider and discuss further referral to orthopedics/physical therapy/pain management as needed. Discuss need for MRI imaging. If unable to followup with PCP, followup with orthopedic urgent care in 5-7 days , call to schedule appointment. Patient instructed on RICE method: rest, ice, compression, elevation. Patient instructed to WBAT. Take medications as directed. Patient questions asked and answered. ER precautions given, patient instructed to return to ER immediately for any new or worsening of symptoms. [facility] [address] [facility], [id number] [email or web address] Doyle Faust Jul 22, 2018 13:02
--- NOTE | 2018-07-22 14:18 | Diagnostic Imaging Report ---
Indication: Right wrist pain Findings: 3 views of the right wrist were obtained. No acute fractures, malalignment, erosions or periostitis are identified. Bones are osteopenic. Soft tissues are unremarkable. Impression: No acute findings.
--- NOTE | 2018-07-22 14:48 | Diagnostic Imaging Report ---
Indication: Pain Comparison: None Findings: 4 view left hand obtained. No fracture or malalignment identified. Bones are osteopenic. Soft tissues are unremarkable. IMPRESSION: No acute injury appreciated
--- NOTE | 2018-07-22 14:49 | Diagnostic Imaging Report ---
Indication: Neck pain trauma Comparison: None Findings: 3 views of the cervical spine obtained. The bones are osteopenic. There is narrowing of the C4-5 disc. There is no fracture. No soft tissue swelling is identified. The open-mouth view is negative showing good alignment. There is also moderate facet arthropathy demonstrated C4-5 probably worse on the left compared to the right. IMPRESSION: No acute injury
--- NOTE | 2018-07-22 14:49 | Diagnostic Imaging Report ---
Indication: Knee Pain 3 views of the right knee were obtained. Findings: No acute fracture, malalignment, or joint effusion are identified. Joint space is relatively well-maintained. Bones are osteopenic. Impression: Negative for acute injury
[2018-07-22] MEDS ORDERED: ROBAXIN500 MG PO (15:36)
--- NOTE | 2018-07-22 15:50 | Diagnostic Imaging Report ---
Indication: Right hand pain Findings: 3 views of the right hand were obtained. Normal bony mineralization and alignment are demonstrated. No acute fractures, erosions, or periosteal reaction are seen. Soft tissues are unremarkable. Impression: No acute findings.
[2018-07-22 15:54] VITALS: BP 160/91
== END 2018-07-22 15:56 | disposition home or self-care (01) ==
LOC: EMR 13:06
DX: S80.02XA Contusion of left knee, initial encounter (principal); S63.501A Unspecified sprain of right wrist, initial encounter; W10.9XXA Fall (on) (from) unspecified stairs and steps, initial encounter; Y92.038 Other place in apartment as the place of occurrence of the external cause; M54.12 Radiculopathy, cervical region; I10 Essential (primary) hypertension; K21.9 Gastro-esophageal reflux disease without esophagitis; J44.9 Chronic obstructive pulmonary disease, unspecified; Z88.6 Allergy status to analgesic agent; Z88.2 Allergy status to sulfonamides; Z86.73 Personal history of transient ischemic attack (TIA), and cerebral infarction without residual deficits
CPT/HCPCS: 72040; 99284

== ENCOUNTER 2019-04-17 04:35 | Emergency (ER) | payer MEDICARE, OTHER ==
[~2019-04-17] VITALS: Ht 170.2 cm; Wt 83.0 kg
[~2019-04-17 04:35] MED LIST changes: +ROBAXIN500 MG PO
--- NOTE | 2019-04-17 04:44 | NUR ---
ED Nurse Note: pt walked in to ED for C/O a "knot" in groin area. pt stated she noticed about 2 days ago and it started to hurt more yesterday. pt also states she has been having diarrhea. pt is alert x4.
[2019-04-17 04:46] VITALS: BP 138/80
--- NOTE | 2019-04-17 04:58 | NUR ---
ED Nurse Note: witnessed ERMD for needle aspiration of the abscess, but due to too much pain, pt refused the treatment half way through. Educated pt to provide warm compress and pt verbalized understanding. instructed pt to return if fever develops.
--- NOTE | 2019-04-17 05:07 | Emergency Room Report ---
History of Present Illness General Chief Complaint: General Complaint Source: Patient Present Illness HPI 59-year-old female presents with bump in the left inguinal crease, patient has any fevers or chills, started about 1 day ago, patient noticed a little bump, worsened with movement, she feels that her skin is pushing against each other, no nausea no vomiting, severity is mild, intermittent, patient presents for evaluation. Allergies: Coded Allergies: IBUPROFEN (Verified Allergy, Unknown, ACID REFLUX, 08/15/17) SULFA (SULFONAMIDE ANTIBIOTICS) (Verified Allergy, Unknown, HEADACHE, NAUSEA, SCRATCHY THROAT, 08/15/17) Patient History Past Medical History: see triage record Reviewed Nursing Documentation: PMH: Agreed; PSxH: Agreed Nursing Documentation-PMH Past Medical History: No History, Except For Hx Hypertension: Yes Hx COPD: Yes Hx Cerebrovascular Accident: Yes - 2007 Review of Systems All Other Systems: negative except mentioned in HPI Physical Exam Vital Signs Date Time Temp Pulse Resp B/P (MAP) Pulse Ox O2 Delivery O2 Flow Rate FiO2 04/17/19 04:38 97.7 81 16 140/85 (103) 96 Room Air 04/17/19 04:46 99 General Appearance: well appearing, no apparent distress Head: normocephalic, atraumatic ENT: hearing grossly normal, normal voice Neck: full range of motion, supple Respiratory: no respiratory distress, speaking full sentences Neurologic: alert, normal gait Psychiatric: mood/affect normal Skin: other - Induration felt under the skin, no erythema, ultrasound shows a 1 cm fluid collection Procedures Additional Procedure Procedure Narrative Consent obtained from patient, attempted fine-needle aspiration, the area was cleansed with chlorhexidine, a 25-gauge needle was utilized, patient cannot tolerate procedure, patient did not want a scalpel. Medical Decision Making Diagnostic Impression: Primary Impression: Follicle cyst Additional Impression: Abscess ER Course 59-year-old female presents with possible abscess versus cyst, patient is currently taking antibiotics counseled patient that she can try warm compresses most likely ingrown hair, if symptoms do not improve after 2448 hrs. to return to the ED for pot possible lancing Patient agrees with plan disposition home with return precautions Last Vital Signs Date Time Temp Pulse Resp B/P (MAP) Pulse Ox O2 Delivery O2 Flow Rate FiO2 04/17/19 04:46 98.0 80 18 138/80 99 Room Air 04/17/19 04:46 99 Disposition: HOME, SELF-CARE Condition: Stable Referrals: [facility] Shreya Thompson. [facility] Patient Instructions: Abscess, [id number], Folliculitis Additional Instructions: The patient was provided with discharge instructions, notified to follow-up with a primary care doctor and or specialist in the next 24-48 hours, and to return to the ED if they have worsening of their symptoms. Please note that this report is being documented using Synapse technology. This can lead to erroneous entry secondary to incorrect interpretation by the dictating instrument. IF SYMPTOMS DO NOT IMPROVE WITH WARM COMPRESSES OVER 24-48 HOURS, YOU MAY NEED AN INCISION AND DRAINAGE. Sammy Waterman MD Apr 17, 2019 05:07
[2019-04-17 05:11] VITALS: BP 132/85
--- NOTE | 2019-04-17 05:11 | NUR ---
ER DISCHARGE NOTE: Patient is cleared to be discharged per ERMD, pt is aox4, on room air, with stable vital signs. pt was given dc instructions, pt was able to verbalize understanding, pt id band removed without complications. pt is able to ambulate with steady gait. pt took all belongings.
== END 2019-04-17 05:11 | disposition home or self-care (01) ==
LOC: EMR 05:03
DX: L02.214 Cutaneous abscess of groin (principal); L72.9 Follicular cyst of the skin and subcutaneous tissue, unspecified; Z88.8 Allergy status to other drugs, medicaments and biological substances; Z88.2 Allergy status to sulfonamides; I10 Essential (primary) hypertension; J44.9 Chronic obstructive pulmonary disease, unspecified; Z86.73 Personal history of transient ischemic attack (TIA), and cerebral infarction without residual deficits
CPT/HCPCS: 99282